=== PATIENT | male | born 1990 | race Caucasian/White ===

== ENCOUNTER 2020-12-10 08:14 | Emergency (ER) | payer OTHER ==
[2020-12-10] MEDS ORDERED: KEFLEX250 MG PO (09:51)
== END 2020-12-10 09:51 | disposition home or self-care (01) ==
LOC: FER 08:14
DX: I80.3 Phlebitis and thrombophlebitis of lower extremities, unspecified (principal); L03.115 Cellulitis of right lower limb; I83.93 Asymptomatic varicose veins of bilateral lower extremities
CPT/HCPCS: 93971